=== PATIENT | female | born 1990 | race American Indian/Alaskan Native ===

== ENCOUNTER 2017-06-19 09:10 | Inpatient (IN) | payer OTHER ==
[2017-06-19] MEDS ORDERED: LACTATED RINGERS 1,000 ML IV SCH ×2 (10:00→11:00)
[2017-06-19] MEDS ORDERED: PITOCin/NS 20 UNIT/1000ML DRIP 20 UNITS/1,000 ML BAG IV SCH ×2 (10:00→14:00)
[2017-06-19] MEDS ORDERED: REGLAN IV NR ×2 (10:00→10:53)
[2017-06-19] MEDS ORDERED: BICITRA PO NR ×2 (10:00→10:53)
[2017-06-19] MEDS ORDERED: ANCEF/STERILE WATER 2 GM/20 ML 2 GM/20 ML SYRINGE IV NR ×2 (10:00→11:00)
[2017-06-19] MEDS ORDERED: PEPCID IV NR ×2 (10:00→10:53)
[2017-06-19 10:02] LABS: Basophils % (Auto) 0.6 % (0.0-1.8); Eosinophils % (Auto) 1.2 % (0.0-4.3); Hematocrit 32.8 % (30.3-42.9); Hemoglobin 11.4 gm/dl (10.1-14.3); Mean Corpuscular HGB Conc 35 % (30-34); Mean Corpuscular Hemoglobin 33 pg (28-32); Mean Corpuscular Volume 95 fl (79-97); Platelet Count 196 K/mm3 (140-440); Red Blood Count 3.47 M/mm3 (3.65-5.03); Red Cell Distribution Width 13.6 % (13.2-15.2)
--- NOTE | 2017-06-19 10:59 | History and Physical Report ---
History of Present Illness Date of examination: 06/19/17 Date of admission: 06/19/17 09:10 Chief complaint: 39 weeks not in labor. Previous C/section History of present illness: Patient is a 36 year old , LMP 09/18/16, EDC 06/25/17 at 39 weeks and 1 day gestation who is admitted for elective repeat C/section. She denies any contraction, fluid leakage or bleeding per vagina. She reports good movement. She is a late registrant to PN at 28 weeks. She started [facility] in [place] and had a first trimester sonogram at 10 weeks. She did not have care until she presented to [facility] at 28 weeks. She declined MFM consult and genetics testing. Her GCT was 108. tracing is CAT 1. Past History Past Medical History: other (anemia) Past Surgical History: section MEDIA CLERK History: abnormal PAP smear - Obstetrical History Expected Date of Delivery: 06/25/17 Actual Gestation: 39 Week(s) 1 Day(s) : 2 Para: 1 Number of Living Children: 1 Medications and Allergies Allergies Allergy/AdvReac Type Severity Reaction Status Date / Time peanut Allergy Hives Verified 06/19/17 09:19 Active Meds: Active Medications Citric Acid/Sodium Citrate (Bicitra) 30 ml PO ONCE NR Stop: 06/19/17 18:00 Famotidine (Pepcid) 20 mg IV ONCE NR Stop: 06/19/17 18:00 Cefazolin Sodium (Ancef/Sterile Water 2 Gm/20 Ml) 2 gm in 20 mls @ 80 mls/hr IV PREOP NR PRN Reason: Protocol Stop: 06/19/17 18:00 Lactated Ringer's (Lactated Ringers) 1,000 mls @ 2,250 mls/hr IV PREOP GEORGINA Stop: 06/20/17 10:27 Oxytocin/Sodium Chloride (Pitocin/Ns 20 Unit/1000ml Drip) 20 units in 1,000 mls @ 0 mls/hr IV TITR GEORGINA PRN Reason: As Directed Metoclopramide HCl (Reglan) 10 mg IV ONCE NR Stop: 06/19/17 18:00 - Physical Exam Cardiovascular: Normal S1, Normal S2 Lungs: Positive: Clear to auscultation Vulva: both: normal Deep Tendon Reflex Grade: Normal +2 - Obstetrical FHR: category 1 Uterine Contraction Monitor Mode: External Cervical Dilatation: 1 Cervical Effacement Percentage: 50 station: -2 Uterine Contraction Pattern: Irregular Uterine Contraction Intensity: Mild Results Result Diagrams: 06/19/17 09:40 Abnormal lab results 06/19/17 Range/Units 09:40 RBC 3.47 L (3.65-5.03) M/mm3 MCH 33 H (28-32) pg MCHC 35 H (30-34) % [place] % (Auto) 7.7 H (0.0-7.3) % All other labs normal. Assessment and Plan - Patient Problems (1) 39 weeks gestation of Current Visit: Yes Status: Acute (2) Previous section Current Visit: Yes Status: Acute Plan to address problem: Admit for repeat C/section. Routine pre-op labs. IV fluid. and toco monitoring. Keep NPO. Anesthesia aware. Risks, benefits, and alternatives of the procedure were discussed in detail with the patient such as infection, hemorrhage requiring blood transfusion, injury to the bowel, bladder and blood vessels. She expressed understanding, her questions were answered, she gave her informed consent. (3) Patient declines vaginal after section () Current Visit: Yes Status: Acute
--- NOTE | 2017-06-19 11:00 | Anesthesia Consultation ---
Anesthesia Consult and Med Hx Date of service: 06/19/17 - Airway Anesthetic Teeth Evaluation: Good, Chipped ROM Head & Neck: Adequate Mental/Hyoid Distance: Adequate Intubation Access Assessment: Good - Pre-Operative Health Status ASA Pre-Surgery Classification: ASA3 Proposed Anesthetic Plan: General - Pulmonary Hx Asthma: No COPD: No Hx Pneumonia: No - Cardiovascular System Hx Hypertension: No - Central Nervous System Hx Seizures: No Hx Psychiatric Problems: No - Endocrine Hx Renal Disease: No Hx End Stage Renal Disease: No Hx Hypothyroidism: No Hx Hyperthyroidism: No - Hematic Hx Anemia: No Hx Sickle Cell Disease: No - Other Systems Hx Obesity: Yes (BMI>40) - Additional Comments Anesthesia Medical History Comments: NAC. Otherwise healthy.
--- NOTE | 2017-06-19 11:05 | Anesthesia Day of Surgery ---
Anesthesia Day of Surgery - Day of Surgery Patient Examined: Yes Patient H&P Reviewed: Yes Patient is NPO: Yes
[2017-06-19] MEDS ORDERED: SUBLIMAZE ONE (11:12)
[2017-06-19] MEDS ORDERED: NACL 0.9% IR ONE (12:06)
[2017-06-19] MEDS ORDERED: WATER FOR IRRIG STERILE IR ONE (12:06)
[2017-06-19] MEDS ORDERED: NEO SYNEPHRINE/NS Syringe(OR USE) IV ONE (12:07)
[2017-06-19] MEDS ORDERED: METHERGINE IM ONE ×3 (12:29→12:42)
[2017-06-19] MEDS ORDERED: SENOKOT PO PRN (13:11)
[2017-06-19] MEDS ORDERED: MORPHINE IV PRN (13:11)
[2017-06-19] MEDS ORDERED: MILK OF MAGNESIA PO PRN (13:11)
[2017-06-19] MEDS ORDERED: NARCAN 0.4 MG/1 ML IV PRN (13:11)
[2017-06-19] MEDS ORDERED: MYLICON PO PRN (13:11)
[2017-06-19] MEDS ORDERED: TUCKS PAD TP PRN (13:11)
[2017-06-19] MEDS ORDERED: LANSINOH TP PRN (13:11)
[2017-06-19] MEDS ORDERED: ZOFRAN IV PRN (13:11)
--- NOTE | 2017-06-19 13:26 | Operative Report ---
Operative Report Operative Report: Preoperative diagnosis: 1. SIUP at 39 weeks and 1 day gestation not in labor. 2. Previous section. 3. Refused . Post operative diagnosis: same as preoperative diagnosis. Procedure: Repeat low transverse section. Surgeon: Dr. Austin Edger Technician: none Anesthesia: Spinal EBL: 800 cc IVF: RL 1400 cc Urine: 75 cc clear Intraoperative findings: Female found in an ANG position, delivered at 12 :21 PM, Apgars 8 at 1 minute and 9 at 5 minutes, weight 7 lbs. 3 oz. Procedure details: The risks, benefits, and alternatives of the procedure were discussed in detail with the patient which included but not limited to the risk of infection, hemorrhage requiring blood transfusion, injury to the bowel or bladder and blood vessels. The patient expressed understanding her questions were answered and she gave informed consent. The patient was taken to the operating room with an IV fluid infusion Ringer's lactate. In the operating room, she was placed in a sitting position and given spinal anesthesia. She was then placed in the dorsal supine position with a leftward tilt. Choi catheter and Venodyne boots were placed. The abdomen was washed and she was prepared and draped in usual sterile fashion. After confirming adequate spinal anesthesia, a Pfannenstiel skin incision was made using the scalpel at the level of the previous scar about 2 cm above the pubic symphysis. This incision was carried down to the underlying fascia using the Bovie. The fascia was incised bilaterally in a curvilinear fashion using the Bovie. 2 straight Kocker clamps were used to grasp the upper edge of the fascia from which the underlying rectus abdominis muscle was dissected off using the Bovie. A similar procedure was done with the lower edge of the fascia to dissect the underlying rectus abdominis muscle. The muscle was from the midline bluntly by pulling, the parietal peritoneum was entered sharply using Metzenbaum scissors. A quick survey of the anatomy revealed a gravid uterus, normal fallopian tubes and ovaries bilaterally. A bladder flap was created. Roosevelt'O retractor was placed at the incision for proper visualization. A low transverse incision was made in the lower uterine segment using the scalpel and extended bilaterally in a curvilinear fashion using bandage scissors. The amniotic sac was ruptured, there was copious amount of clear amniotic fluids. The was found in an ANG position. The head was delivered atraumatically, bulb suction of the mouth and nose was performed. This was followed by delivery of the shoulders and rest of the body atraumatically at 12:21 PM. The cord was clamped 2 and cut, the was handed off to the awaiting lehr cutter. The was a female, Apgars 8 at 1 minute and 9 at 5 minutes, weighs 7 pounds and 3 ounces. Cord blood was collected. The placenta was delivered manually it was complete with a three- vessel cord. The uterine cavity was cleaned of clot and debris using dry lap sponges. The uterine incision was repaired in a running locked fashion using 0 Vicryl sutures. A second layer of imbrication was placed. The gutters were cleaned of clots and debris using dry lap sponges. After confirming adequate hemostasis, the instruments were removed from the abdomen. The fascia was closed in a running fashion using 0 Vicryl sutures. The skin was closed with laura. Sterile dressing was placed. The counts laps, needles, sponges, and instruments were correct 2. The patient tolerated the procedure well. She was taken to the recovery room in a stable condition.
[2017-06-19] MEDS ORDERED: SODIUM CHLORIDE FLUSH SYRINGE 10 ML IV NR (14:00)
--- NOTE | 2017-06-19 16:22 | Post Anesthesia Evaluation ---
- Post Anesthesia Evaluation Patient Participated: Yes Airway Patent: Yes Stable Respiratory Function: Yes Nausea/Vomiting: No Temp > 96.8F: Yes Pain Manageable: Yes Adequeate Hydration: Yes Anesthesia Complications: No Patient on Ventilator: No
[2017-06-19] MEDS: TORADOL IV PRN ×2 (17:08→23:50)
[2017-06-20 00:52] LABS: Hematocrit 31.5 % (30.3-42.9); Hemoglobin 10.7 gm/dl (10.1-14.3)
[2017-06-20] MEDS: PERCOCET 5/325 PO PRN ×2 (09:10→19:22)
--- NOTE | 2017-06-20 09:55 | Progress Note ---
Assessment and Plan - Patient Problems (1) Status post section Onset Date: 06/20/17 Current Visit: Yes Status: Resolved Plan to address problem: A: S/P Repeat C Section - POD #1 Doing well Asymptomatic anemia - stable P: Continue RPOC Anticipate discharge in 24-48hrs Subjective - Subjective Date of service: 06/20/17 Principal diagnosis: s/p Repeat C Section - POD #1 Interval history: Pt is feeling well without complaints. Bleeding improved. Patient reports: appetite normal, voiding normally, pain well controlled, flatus , ambulating normally : doing well Objective - Vital Signs Latest vital signs: Vital Signs Temp Pulse Resp BP BP Pulse Ox 06/20/17 04:00 99.2 F 95 H 20 128/80 95 06/20/17 00:20 18 06/20/17 00:00 98.2 F 71 20 124/68 98 06/19/17 23:50 16 06/19/17 20:45 98.5 F 76 20 129/69 97 06/19/17 14:30 97.6 F 60 20 114/63 06/19/17 14:08 19 06/19/17 13:51 57 L 19 134/84 100 06/19/17 13:36 56 L 19 123/77 100 06/19/17 13:21 54 L 19 114/71 100 06/19/17 13:16 58 L 16 110/71 100 06/19/17 13:11 97.5 F L 61 15 111/64 100 06/19/17 13:06 97.5 F L 65 15 111/67 100 06/19/17 11:13 103 H 99 06/19/17 11:08 76 100 06/19/17 11:03 75 98 06/19/17 10:57 97.7 F 109 H 13 120/73 98 Intake and Output 06/19/17 06/20/17 06/20/17 22:59 06:59 14:59 Intake Total 120 240 Output Total 600 500 Balance -480 -260 Intake: Oral 120 240 Output: Urine 600 500 Indwelling Catheter 600 Void 500 Other: Total, Intake Amount 120 240 Total, Output Amount 600 500 # Voids Void 1 - Exam Breasts: Present: deferred Cardiovascular: Present: Regular rate Lungs: Present: Clear to auscultation Abdomen: Present: normal appearance, soft Uterus: Present: normal, firm, fundal height below umbilicus Extremities: Present: normal Incision: Present: normal, dry, intact - Labs Labs: Abnormal lab results 06/19/17 Range/Units 09:40 RBC 3.47 L (3.65-5.03) M/mm3 MCH 33 H (28-32) pg MCHC 35 H (30-34) % [place]aston % (Auto) 7.7 H (0.0-7.3) % Laboratory Tests 06/19/17 06/19/17 06/20/17 09:40 09:40 00:33 WBC 9.0 RBC 3.47 L Hgb 11.4 10.7 Hct 32.8 31.5 MCV 95 MCH 33 H MCHC 35 H RDW 13.6 Plt Count 196 Lymph % (Auto) 23.3 Gaston % (Auto) 7.7 H Eos % (Auto) 1.2 Baso % (Auto) 0.6 Lymph # 2.1 Gaston # 0.7 Eos # 0.1 Baso # 0.1 Seg Neutrophils % 67.2 Seg Neutrophils # 6.1 Blood Type O POSITIVE Antibody Screen Negative
--- NOTE | 2017-06-20 09:59 | Query- General ---
Jarrett Enciso Norman Date: 06/20/17 Furniture Crater/CDS: Rohit Phone#:[phone] Exercise your independent professional judgment when responding to this query. Questions asked do not imply a particular answer is desired or expected. We greatly appreciate your clarification on this issue. Clinical Documentation States: 27 year old female was admitted on 06/19/17 The Operative report (Dr. Austin ) states " Preoperative diagnosis: 1. SIUP at 39 weeks and 1 day gestation not in labor. 2. Previous section. 3. Refused . Post operative diagnosis: same as preoperative diagnosis. Procedure: Repeat low transverse section. " Clinical Findings Show (include reference to source document): BMI: 43 Given the above clinical scenario can you please provide an appropriate diagnosis based on your knowledge of the patient: PHYSICIAN RESPONSE: [ ] Obesity [ ] Morbid obesity [ ] Other (Please specify) [ ] Clinically undeterminable Present on Admission: [ ] Yes (Y) [ ] Clinically undeterminable (W) [ ]No(N) Please also document response in your Progress Notes and/or Discharge Summary and indicate if the condition was present on admission. MTDD
[2017-06-20] MEDS: MOTRIN PO PRN ×2 (13:45→19:23)
[2017-06-21] MEDS: MOTRIN PO PRN ×3 (00:46→12:13)
[2017-06-21] MEDS: PERCOCET 5/325 PO PRN ×3 (00:47→12:13)
--- NOTE | 2017-06-21 10:36 | Progress Note ---
Assessment and Plan - Patient Problems (1) Status post section Onset Date: 06/20/17 Current Visit: Yes Status: Resolved Plan to address problem: A: S/P Repeat C Section - POD #2 Doing well Asymptomatic anemia - stable P: May go home today. Subjective - Subjective Date of service: 06/21/17 Principal diagnosis: s/p Repeat C Section - POD #2 Interval history: Pt is feeling well without complaints. Bleeding improved. She is tolerating a reg diet without nausea or vomiting, ambulating and voiding without difficulty. Patient reports: appetite normal, voiding normally, pain well controlled, flatus , ambulating normally [place]: doing well, nursing well Objective - Vital Signs Latest vital signs: Vital Signs Temp Pulse Resp BP BP Pulse Ox 06/21/17 08:44 97.7 F 81 116/62 06/21/17 00:00 98.1 F 89 20 125/69 06/20/17 12:22 98.3 F 95 H 18 128/73 94 06/20/17 11:18 82 120/65 Intake and Output 06/20/17 06/21/17 06/21/17 22:59 06:59 14:59 Intake Total 90 Balance 90 Intake: Oral 90 Other: Total, Intake Amount 90 - Exam Breasts: Present: deferred Cardiovascular: Present: Regular rate Lungs: Present: Clear to auscultation Abdomen: Present: normal appearance, soft Uterus: Present: normal, firm, fundal height below umbilicus Extremities: Present: normal Incision: Present: normal, dry, intact
--- NOTE | 2017-06-21 11:01 | Discharge Summary ---
Providers - Providers Date of Admission: 06/19/17 09:10 Date of discharge: 06/21/17 Attending physician: CAROLE DURAND MD Primary care physician: CAROLE DURAND MD Hospitalization Reason for admission: section, IUP at term Delivery: Procedure: section, repeat low transverse Episiotomy: none Laceration: none Incision: normal, dry, intact Other procedures: none complications: none Discharge diagnosis: IUP at term delivered baby: female Hospital course: Patient is a 36 year old BF , LMP 09/18/16, EDC 06/25/17 at 39 weeks and 1 day gestation who is admitted for elective repeat C/section. She underwent an uncomplicated repeat C Section and tolerated the procedure well. By POD #2 she was tolerating a reg diet without nausea or vomiting, ambulating and voiding without difficulty. She was therefore discharged to home on POD #2 in stable condition. Condition at discharge: Good Disposition: DC-01 TO HOME OR SELFCARE - Discharge Diagnoses (1) Status post section Status: Resolved Plan - Discharge Medications Prescriptions: Ferrous Sulfate [Feosol 325 MG tab] 325 mg PO BID #60 tablet Ibuprofen [Motrin 800 MG tab] 800 mg PO Q6H PRN #30 tablet PRN Reason: Pain, Mild (1-3) oxyCODONE /ACETAMINOPHEN [Percocet 5/325 mg] 1 tab PO Q6H PRN #30 tablet PRN Reason: Pain, Moderate (4-6) Vit Calc,Iron,Folic [ Vitamins] 1 each PO DAILY #30 tablet - Provider Discharge Summary Activity: routine, no sex for 6 weeks, no heavy lifting 4 weeks, no strenuous exercise Diet: routine Instructions: routine Additional instructions: [] Smoking cessation referral if applicable(refer to patient education folder for contact #) [] Refer to [facility] Booklet Call your doctor immediately for: * Fever > 100.5 * Heavy vaginal bleeding ( >1 pad per hour) * Severe persistent headache * Shortness of breath * Reddened, hot, painful area to leg or breast * Drainage or odor from incision. * Keep incision clean and dry at all times and follow doctor's instructions regarding bathing/showering - Follow up plan Follow up: CAROLE DURAND MD [Primary Care Provider] - 14 Days Forms: [facility] Discharge Summary
[2017-06-21 16:27] VITALS: BP 123/82
== END 2017-06-21 14:30 | disposition home or self-care (01) | DRG 765 ==
LOC: APU 09:10 → OB 14:51
PROVIDERS: ADMIT Obstetrics & Gynecology; ATTEND Obstetrics & Gynecology
PROC: 10D00Z1 Extraction of Products of Conception, Low, Open Approach (ICD-10-PCS; principal; 2017-06-19)
DX: O34.211 Maternal care for low transverse scar from previous cesarean delivery (principal); Z68.41 Body mass index [BMI] 40.0-44.9, adult; Z3A.39 39 weeks gestation of pregnancy; Z37.0 Single live birth; Z91.010 Allergy to peanuts; O99.03 Anemia complicating the puerperium; D64.9 Anemia, unspecified; O99.214 Obesity complicating childbirth; E66.9 Obesity, unspecified
CPT/HCPCS: 36415; 85014; 85018; 85025; 86850; 86900; 86901; 99211; G0463; J0690; J1885; J2210; J2270; J2370; J2590; J2765; J3010; J7120